=== PATIENT | female | born 1950 | race Caucasian/White ===

== ENCOUNTER 2016-05-23 17:22 | Emergency (ER) | payer OTHER ==
[2016-05-23] MEDS ORDERED: LIDOCAINE 1% MDV 20ML VIAL As Ordered ONE (18:27)
--- NOTE | 2016-05-23 19:00 | REPUSA ---
CLINICAL HISTORY: Head injury. TECHNIQUE: Multiple axial CT images were obtained through the brain without IV contrast material. COMMENTS: There is normal configuration of sella turcica. There are no intra or extra-axial collections. There is no mass effect or midline shift. There is no evidence of hematoma formation. No hydrocephalus is p resent. The ventricles are symmetrical. No abnormal calcifications are present. There is diffuse age-appropriate cerebellar and cerebral atrophy with proportionally dilated ventricl es and cortical sulci. There are bilateral periventricular and subcortical white matter hypolucencies compatible with mild c hronic microvascular disease. Otherwise, no significant focal abnormalities are seen either in the posterior fossa or supratentoria l compartment. IMPRESSION: 1. Age-appropriate cerebellar and cerebral atrophy. 2. Mild chronic microvascular disease. 3. No evidence of acute intracranial pathology. Thank you for your kind referral of this patient.
--- NOTE | 2016-05-23 19:00 | REPUSA ---
CLINICAL HISTORY: Neck pain. TECHNIQUE: Multiple axial images were obtained through the cervical spine. Images were also reconstru cted in coronal and sagittal planes. The study was performed without IV contrast. COMMENTS: There is no fracture or spondylolisthesis visualized. The paraspinal soft tissues are unremarkable. T here are no lytic or blastic lesions. Straightening of cervical lordosis is seen, suggesting muscular spasm. There is evidence of multileve l disk disease, demonstrated by osteophytosis and endplate sclerosis. At C4-C5, C5-6 and C6-7, therei is a broad-based posterior disc osteophyte complex is present produci ng bilateral foraminal and canal stenosis. IMPRESSION: 1. No fracture or spondylolisthesis. 2. Straightening of cervical lordosis is seen, suggesting muscular spasm. 3. Multilevel spondylosis most severe at C4-C5 through C6-7. Thank you for your kind referral of this patient.
[2016-05-23] MEDS ORDERED: TETANUS/DIPHTHERIA TOX ADSORB ADULT 0.5ML SYR/VIAL (90714) As Ordered ONE (19:18)
[2016-05-23 19:33] LABS: BASO # 0.2 K/mm3 (0.0-0.2); BASO % 1.7 % (0.0-1.0); EOS # 0.3 K/mm3 (0.0-0.50); EOS % 2.6 % (0.0-3.0); LARGE UNSTAINED CELL # 0.2 K/mm3 (0.0-0.4); LARGE UNSTAINED CELL % 1.8 % (0.0-4.0); LYMPH # 2.7 K/mm3 (1.5-4.5); LYMPH % 23.3 % (24.0-44.0); MEAN CORPUSCULAR HEMOGLOBIN 25.2 pg (27.0-33.0); MEAN CORPUSCULAR HGB CONC 33.2 g/dl (32.0-36.5); MEAN CORPUSCULAR VOLUME 76.2 fl (80.0-96.0); MONO # 0.5 K/mm3 (0.0-0.8); MONO % 4.6 % (0.0-5.0); NEUTROPHILS # 7.2 K/mm3 (1.8-7.7); NEUTROPHILS % 65.9 % (36.0-66.0); PLATELET COUNT, AUTOMATED 208 k/mm3 (150-450); RED CELL DISTRIBUTION WIDTH 14.1 % (11.5-14.5); WHITE BLOOD COUNT 10.8 K/mm3 (4.0-10.0)
[2016-05-23] MEDS ORDERED: ACETAMINOPHEN 325 MG TAB As Ordered ONE (19:33)
[2016-05-23 19:59] LABS: ANION GAP 7 MEQ/L (8-16); BLOOD UREA NITROGEN 12 MG/DL (7-18); CALCIUM LEVEL 9.2 MG/DL (8.8-10.2); CARBON DIOXIDE LEVEL 29 MEQ/L (21-32); CHLORIDE LEVEL 106 MEQ/L (98-107); CREATININE FOR GFR 0.93 MG/DL (0.55-1.02); GLOMERULAR FILTRATION RATE > 60.0 (>45); GLUCOSE, FASTING 101 MG/DL (80-110); POTASSIUM SERUM 4.5 MEQ/L (3.5-5.1); SODIUM LEVEL 142 MEQ/L (136-145)
--- NOTE | 2016-05-23 21:27 | EDDOCDS ---
Physician Documentation [facility] Name: Ida Whitman Age: 66 yrs Sex: Female : 1950 Arrival Date: 05/23/2016 Time: 17:22 Bed TR7 Private MD: Rui Perry Disposition: 05/23/16 20:07 Discharged to Home/Self Care. Impression: Laceration without foreign body of scalp, Unspecified injury of head. - Condition is Stable. - Discharge Instructions: Head Injury, Adult, Laceration Care, Adult. - Prescriptions for Tylenol 325 mg Oral tablet - take 2 tablet by ORAL route every 4 hours as needed; 30 tablet. Ibuprofen 600 mg Oral Tablet - take 1 tablet by ORAL route every 6 hours As needed take with food; 30 tablet. - Medication Reconciliation, Local Pharmacy Hours form. - Follow up: Rui Perry; When: 2 - 3 days; Reason: Recheck today's complaints. - Problem is new. - Symptoms have improved. - Notes: You were seen in the ED for head injury and scalp laceration, which was repaired with 8 valerio and 6 sutures. See your doctor or return to the ED in 7 days for wound recheck and possible suture/staple removal. Bloodwork along with EKG of the heart and CT scan of the head and neck showed no other acute findings. Keep the wound clean and dry with a clean dressing twice daily. Return to the ED for any new pain, worse pain, redness around the wound, discharge from the wound, or any other concerns. Historical: - Allergies: no known allergies; - PMHx: Anxiety; Depression; - Family history: Not pertinent. Vital Signs: 05/23 17:40 BP 111 / 63; Pulse 88; Resp 18; Pulse Ox 96% ; Weight 81.65 kg / 180.01 lbs; Height 4 hs1 ft. 11 in. (149.86 cm); Pain 9/10; 17:42 Temp 97.8(O); hs1 19:34 BP 132 / 90 Supine; Pulse 78; cp1 19:34 BP 127 / 81 Sitting; Pulse 80; cp1 19:35 BP 125 / 82 Standing; Pulse 92; cp1 17:40 Body Mass Index 36.36 (81.65 kg, 149.86 cm) hs1 Procedures: 19:52 Laceration repair:. br1 Laceration: 19:52 Wound Repair of 7cm ( 2.8in ) full thickness laceration to forehead. Irregularly br1 shaped.. Distal neuro/vascular/tendon intact. Anesthesia: Local anesthetic administered with 5 mls of 1% lidocaine. Wound prep: Simple cleansing with betadine by provider, Wound irrigation with saline by provider, Wound explored moderately. Skin closed with 8 thin layer [place] using Staple gun. Skin closed with 6 x 5-0 Eth[place] using Simple interrupted sutures. Dressed with 4x4's. Patient tolerated well. MDM: 17:42 CT Head Without Contrast Ordered. EDMS 17:42 CT Spine,Cervical W/o Contrast Ordered. EDMS 18:20 IV Saline Lock ordered. br1 18:20 Label Stamper/Pulse Ox/q 30 min VS ordered. br1 18:20 Orthostatic VS ordered. br1 18:22 CBC with Diff Ordered. EDMS 18:22 BMP Ordered. EDMS 18:22 ECG WITH READING ER PHYS+CARDIAG ordered. EDMS 19:06 Tetanus- Diptheria-Acellular Pertussis 0.5 ml IM once; Routine booster 10-64yrs, >64 br1 with child contact [employer] ordered. 19:07 Misc. Nursing Order ordered. br1 19:27 Acetaminophen Tablet 650 mg PO once ordered. br1 19:28 TROPONIN Ordered. EDMS 19:56 Financial registration complete. zo 19:56 [facility] Payment Agreement was scanned into [employer] and attached to record. zo 20:03 CBC with Diff Reviewed. br1 20:03 BMP Reviewed. br1 20:03 TROPONIN Reviewed. br1 20:03 CT Head Without Contrast Reviewed. br1 20:03 CT Spine,Cervical W/o Contrast Reviewed. br1 20:03 Ambulate Patient to Assess Patient Safety ordered. br1 Administered Medications: 19:20 Drug: Tetanus- Diptheria-Acellular Pertussis 0.5 ml [diphth,pertussis(acel),tetanus 2.5 cf2 Lf unit-8 mcg-5 Lf/0.5mL IM syringe (0.5 mL)] {Senior Hr Business Partner: [employer]. Exp: 05/27/2016. Lot #: [id number]. } Route: IM; Site: left deltoid; 19:56 Follow up: Response: No significant change. cf2 19:31 Drug: Acetaminophen 650 mg [acetaminophen 325 mg tablet (2 tabs)] Route: PO; cf2 19:55 Follow up: Response: No significant change. cf2 Signatures: Dispatcher [employer] EDNu Mejia Brian, MD MD br1 Julia Sinha RN RN hs1 Estela Messina RN RN cf2 The chart was reviewed and I authenticate all verbal orders and agree with the evaluation and treatment provided.Corrections: (The following items were deleted from the chart) 19:28 18:22 TROPONIN+LAB ordered. EDMS EDMS Attachments: 19:56 [facility] Payment Agreement zo MTDD
--- NOTE | 2016-05-23 21:27 | EDDOCDS ---
Nurse's Notes [facility] Name: Ida Whitman Age: 66 yrs Sex: Female : 1950 Arrival Date: 05/23/2016 Time: 17:22 Bed TR7 Private MD: Rui Perry Diagnosis: Laceration without foreign body of scalp;Unspecified injury of head Presentation: 05/23 17:29 Presenting complaint: EMS states: felt dizzy leaving specialty care office ([facility]) hs1 after seeing mental health worker. Pt lost balance and face hit door jam. Adult Sepsis Screening: The patient does not have new or worsening altered mentation. Patient's respiratory rate is less than 22. Systolic blood pressure is greater than 100. Patient has a qSOFA score of 0- Negative Sepsis Screen. Suicide/Homicide risk assessment- the patient denies having any suicidal and/or homicidal ideations and does not present with any other emotional, behavioral or mental health complaints. Status: Patient is not a cabin service agent or dependent. Transition of care: patient was not received from another setting of care. 17:29 Acuity: AMBIKA Level 3 hs1 17:29 Method Of Arrival: Ambulance hs1 Triage Assessment: 17:37 General: Appears in no apparent distress, Behavior is appropriate for age, cooperative. hs1 Pain: Location: forehead Pain currently is 9 out of 10 on a pain scale. Neurological: Level of Consciousness is awake, alert, obeys commands, Reports dizziness, headache. Respiratory: Airway is patent Respiratory effort is even, unlabored, Respiratory pattern is regular. Derm: Skin is pink, warm & dry. normal, Bruising that is bright red, on right knee and left knee. Musculoskeletal: Circulation, motion, and sensation intact Range of motion intact in all extremities. Injury Description: Laceration sustained to forehead is jagged, 7.6 to 20 cm long, bleeding moderately, was sustained 30-60 minutes ago. is bleeding moderately. Historical: - Allergies: no known allergies; - PMHx: Anxiety; Depression; - Family history: Not pertinent. Screenin:52 Screening information is obtained from the patient. Fall risk: At risk due to prior cf2 history of falls. Assistance ADL's: requires no assistance with activities of daily living. Abuse/DV Screen: The patient / caregiver reports he/she is: not in a situation that causes fear, pain or injury. Nutritional screening: No deficits noted. Advance Directives: Further advance directive information is declined. home support is adequate. Assessment: 19:52 Adult Sepsis Screening: The patient does not have new or worsening altered mentation. cf2 Patient's respiratory rate is less than 22. Systolic blood pressure is greater than 100. Patient has a qSOFA score of 0- Negative Sepsis Screen. General: Patient's hair cleansed. Patient tolerated well. Patient medicated for headache.. Pain: Location: face. Neurological: No deficits noted. EENT: No deficits noted. Cardiovascular: No deficits noted. Respiratory: No deficits noted. GI: No deficits noted. : No deficits noted. Derm: laceration. Musculoskeletal: No deficits noted. Injury Description: pt fell Laceration sustained to face. 20:06 Reassessment: Patient denies pain at this time. Patient states feeling better. Patient cf2 states symptoms have improved. 20:20 Reassessment: Patient denies pain at this time. Patient states feeling better. Patient cf2 states symptoms have improved. Patient requests that daughter be called. Patient able to recall phone number. Message was left for daughter to call ER at patient's request. Patient tolerating po fluids and ambulates without difficulty. Vital Signs: 17:40 BP 111 / 63; Pulse 88; Resp 18; Pulse Ox 96% ; Weight 81.65 kg; Height 4 ft. 11 in. hs1 (149.86 cm); Pain 9/10; 17:42 Temp 97.8(O); hs1 19:34 BP 132 / 90 Supine; Pulse 78; cp1 19:34 BP 127 / 81 Sitting; Pulse 80; cp1 19:35 BP 125 / 82 Standing; Pulse 92; cp1 17:40 Body Mass Index 36.36 (81.65 kg, 149.86 cm) hs1 Vitals: 17:40 Log In Time N/A - ambulance arrival. hs1 ED Course: 17:23 Patient visited by Amisha Sterling, Acute Care Physician. lbd 17:23 Patient moved to Waiting lbd 17:24 Rui Perry is Private Physician. lbd 17:24 Patient moved to 13 lbd 17:31 Triage Initiated hs1 18:12 Wallace Eaton MD is Attending Physician. br1 18:15 Patient visited by Julia Sinha RN. hs1 19:00 Assist provider with laceration repair. Wound care to laceration located on face was cf2 cleaned with irrigated with dressed with Patient tolerated well. 19:03 Patient visited by Wallace Eaton MD. br1 19:05 Estela Messina,RN is Primary Nurse. cf2 19:05 Patient visited by Estela Messina,NELSON. cf2 19:10 EKG done. (by ED staff). Reviewed by Wallace Eaton MD. cln 19:11 Patient visited by Laurita Blackwell PCA. cln 19:19 CT Spine,Cervical W/o Contrast Returned. EDMS 19:19 CT Head Without Contrast Returned. EDMS 19:22 Patient visited by Estela Messina,NELSON. cf2 19:23 BMP Sent. cp1 19:23 CBC with Diff Sent. cp1 19:23 Inserted saline lock: 20 gauge in left antecubital area and blood collected. The cp1 patient tolerated the procedure well. 19:42 TROPONIN Sent. cp1 19:52 Patient visited by Estela Messina,NELSON. cf2 19:52 The patient / caregiver is instructed regarding the plan of care and ED course. Patient cf2 has correct armband on for positive identification. Placed in gown. Bed in low position. Call light in reach. Side rails up X 1. Side rails up X2. gambling monitor on. Pulse ox on. NIBP on. Property :Personal belongings accompany Pt. Door closed. Noise minimized. Visitors limited. Lights dimmed. Moved to private room. Cool cloth applied. Ice pack to injury. Verbal reassurance given. Warm blanket given. Pillow given. Head of bed elevated. 19:56 [facility] Payment Agreement was scanned into [employer] and attached to record. zo 20:02 Patient name changed from Ida\S\\S\J Carlos\S\ to Ida\S\ \S\J Carlos. EDMS 20:05 Patient visited by Wallace Eaton MD. br1 20:06 Rui Perry is Referral Physician. br1 20:58 Patient moved to [facility] Administered Medications: 19:20 Drug: Tetanus- Diptheria-Acellular Pertussis 0.5 ml [diphth,pertussis(acel),tetanus 2.5 cf2 Lf unit-8 mcg-5 Lf/0.5mL IM syringe (0.5 mL)] {Business Process Analyst: [employer]. Exp: 05/27/2016. Lot #: [id number]. } Route: IM; Site: left deltoid; 19:56 Follow up: Response: No significant change. cf2 19:31 Drug: Acetaminophen 650 mg [acetaminophen 325 mg tablet (2 tabs)] Route: PO; cf2 19:55 Follow up: Response: No significant change. cf2 Order Results: Lab Order: CBC with Diff; SPEC'M 05/23/16 19:15 Test: EOS #; Value: 0.3; Range: 0.0-0.50; Units: K/mm3; Status: F Test: BASO #; Value: 0.2; Range: 0.0-0.2; Units: K/mm3; Status: F Test: LARGE UNSTAINED CELL #; Value: 0.2; Range: 0.0-0.4; Units: K/mm3; Status: F Test: WHITE BLOOD COUNT; Value: 10.8; Range: 4.0-10.0; Abnormal: Above high normal; Units: K/mm3; Status: F Test: RED BLOOD COUNT; Value: 5.44; Range: 4.00-5.40; Abnormal: Above high normal; Units: M/mm3; Status: F Test: HEMOGLOBIN; Value: 13.7; Range: 12.0-16.0; Units: g/dl; Status: F Test: HEMATOCRIT; Value: 41.4; Range: 36.0-47.0; Units: %; Status: F Test: MEAN CORPUSCULAR VOLUME; Value: 76.2; Range: 80.0-96.0; Abnormal: Below low normal; Units: fl; Status: F Test: MEAN CORPUSCULAR HEMOGLOBIN; Value: 25.2; Range: 27.0-33.0; Abnormal: Below low normal; Units: pg; Status: F Test: MEAN CORPUSCULAR HGB CONC; Value: 33.2; Range: 32.0-36.5; Units: g/dl; Status: F Test: RED CELL DISTRIBUTION WIDTH; Value: 14.1; Range: 11.5-14.5; Units: %; Status: F Test: PLATELET COUNT, AUTOMATED; Value: 208; Range: 150-450; Units: k/mm3; Status: F Test: NEUTROPHILS %; Value: 65.9; Range: 36.0-66.0; Units: %; Status: F Test: LYMPH %; Value: 23.3; Range: 24.0-44.0; Abnormal: Below low normal; Units: %; Status: F Test: MONO %; Value: 4.6; Range: 0.0-5.0; Units: %; Status: F Test: EOS %; Value: 2.6; Range: 0.0-3.0; Units: %; Status: F Test: BASO %; Value: 1.7; Range: 0.0-1.0; Abnormal: Above high normal; Units: %; Status: F Test: LARGE UNSTAINED CELL %; Value: 1.8; Range: 0.0-4.0; Units: %; Status: F Test: NEUTROPHILS #; Value: 7.2; Range: 1.8-7.7; Units: K/mm3; Status: F Test: LYMPH #; Value: 2.7; Range: 1.5-4.5; Units: K/mm3; Status: F Test: MONO #; Value: 0.5; Range: 0.0-0.8; Units: K/mm3; Status: F Lab Order: [facility]; SPEC'M 05/23/16 19:15 Test: GLUCOSE, FASTING; Value: 101; Range: 80-110; Units: MG/DL; Status: F Test: BLOOD UREA NITROGEN; Value: 12; Range: 7-18; Units: MG/DL; Status: F Test: CREATININE FOR GFR; Value: 0.93; Range: 0.55-1.02; Units: MG/DL; Status: F Test: GLOMERULAR FILTRATION RATE; Value: > 60.0; Range: >45; Status: F Test: SODIUM LEVEL; Value: 142; Range: 136-145; Units: MEQ/L; Status: F Test: POTASSIUM SERUM; Value: 4.5; Range: 3.5-5.1; Units: MEQ/L; Status: F Test: CHLORIDE LEVEL; Value: 106; Range: 98-107; Units: MEQ/L; Status: F Test: CARBON DIOXIDE LEVEL; Value: 29; Range: 21-32; Units: MEQ/L; Status: F Test: ANION GAP; Value: 7; Range: 8-16; Abnormal: Below low normal; Units: MEQ/L; Status: F Test: CALCIUM LEVEL; Value: 9.2; Range: 8.8-10.2; Units: MG/DL; Status: F Test Note: ; Units are mL/min/1.73 m2 Chronic Kidney Disease Staging per NKF: Stage I & II GFR >=60 Normal to Mildly Decreased Stage III GFR 30-59 Moderately Decreased Stage IV GFR 15-29 Severely Decreased Stage V GFR <15 Very Little GFR Left ESRD GFR <15 on MAINTENANCE CONTROLLER Lab Order: TROPONIN; SPEC'M 05/23/16 19:15 Test: TROPONIN I; Value: < 0.02; Range: < 0.10; Units: NG/ML; Status: F Test Note: ; Troponin I Reference Interval for [employer] LOCI: 99th Percentile= 0.00-0.045 ng/ml Risk Stratification: <= 0.10 ng/ml Decreased Risk for Adverse Clinical Events. 0.10-1.50 ng/ml Increased Risk for Adverse Clinical Events. Evaluation of additional criterion and/or repeat testing in 2-6 hours is suggested to rule out myocardial damage. >= 1.50 ng/ml Indicative of Myocardial Injury. Radiology Order: CT Head Without Contrast Test: CT Head Without Contrast REASON FOR EXAMINATION: head injury; ; CLINICAL HISTORY: Head injury.; TECHNIQUE: Multiple axial CT images were obtained through the brain without IV contrast material.; COMMENTS:; There is normal configuration of sella turcica. There are no intra or extra-axial collections. There; is no mass effect or midline shift. There is no evidence of hematoma formation. No hydrocephalus is p; resent. The ventricles are symmetrical. No abnormal calcifications are present.; There is diffuse age-appropriate cerebellar and cerebral atrophy with proportionally dilated ventricl; es and cortical sulci.; There are bilateral periventricular and subcortical white matter hypolucencies compatible with mild c; hronic microvascular disease.; Otherwise, no significant focal abnormalities are seen either in the posterior fossa or supratentoria; l compartment.; IMPRESSION:; 1. Age-appropriate cerebellar and cerebral atrophy.; 2. Mild chronic microvascular disease.; 3. No evidence of acute intracranial pathology.; Thank you for your kind referral of this patient.; ; ; Radiology Order: CT Spine,Cervical W/o Contrast Test: CT Spine,Cervical W/o Contrast REASON FOR EXAMINATION: neck pain; ; CLINICAL HISTORY: Neck pain.; TECHNIQUE: Multiple axial images were obtained through the cervical spine. Images were also reconstru; cted in coronal and sagittal planes. The study was performed without IV contrast.; COMMENTS:; There is no fracture or spondylolisthesis visualized. The paraspinal soft tissues are unremarkable. T; here are no lytic or blastic lesions.; Straightening of cervical lordosis is seen, suggesting muscular spasm. There is evidence of multileve; l disk disease, demonstrated by osteophytosis and endplate sclerosis.; At C4-C5, C5-6 and C6-7, therei is a broad-based posterior disc osteophyte complex is present produci; ng bilateral foraminal and canal stenosis.; IMPRESSION:; 1. No fracture or spondylolisthesis.; 2. Straightening of cervical lordosis is seen, suggesting muscular spasm.; 3. Multilevel spondylosis most severe at C4-C5 through C6-7.; Thank you for your kind referral of this patient.; ; Outcome: 20:07 Discharge ordered by Provider. br1 21:25 Discharge Assessment: Patient awake, alert and oriented x 3. No cognitive and/or cf2 functional deficits noted. Patient verbalized understanding of disposition instructions. Patient awake and alert. Oriented to person, place and time. patient administered narcotics - no. The following High Risk Discharge criteria are identified: None. Discharged to home. Condition: good Condition: stable Condition: improved. CT Study completed. 21:25 Patient left the ED. cf2 Signatures: Dispatcher [employer] EDMS Amisha Sterling, Acute Care Physician Unit lbd Prabhakar Harmon RN RN cz Olin, Zoeann zo Roggie, Brian, MD MD br1 Cora Bess,SOLAR POWER INSTALLER SOLAR POWER INSTALLER cp1 Julia Sinha RN RN hs1 Laurita Blackwell, DOG RACES MANAGER DOG RACES MANAGER cln Familetti-Oscar,Estela,RN RN cf2 Corrections: (The following items were deleted from the chart) 19:28 19:23 TROPONIN+LAB sent. cp1 EDMS MTDD
--- NOTE | 2016-05-25 07:14 | ECGEPIP ---
Stationary ECG Study [facility] - ED Test Date: 2016-05-23 Pat Name: NASH ORTEGA Department: Room: - Gender: F Research Engineer: nadia : 1950 Requested By: LAURYN Martins Order Number: [id number] Reading MD: Amalia Rodriguez Measurements Intervals [place] Rate: 72 P: 67 MN: 168 QRS: 19 QRSD: 74 T: 75 QT: 386 QTc: 425 Interpretive Statements SINUS RHYTHM INDETERMINATE AXIS POSSIBLE RIGHT VENTRICULAR CONDUCTION DELAY NSTTW ABNORMALITY SUBTLE INFERIOR CHANGES REQUIRE CLINICAL CORRELATION NO PRIOR FOR COMPARISON Electronically Signed On 05-25-2016 7:14:37 EST by Amalia Rodriugez
--- NOTE | 2016-05-25 22:26 | EDDOCDS ---
Nurse's Notes [facility] Name: Ida Ortega Age: 66 yrs Sex: Female : 1950 Arrival Date: 05/23/2016 Time: 17:22 Bed TR7 Private MD: Rui Perry Diagnosis: Laceration without foreign body of scalp;Unspecified injury of head Presentation: 05/23 17:29 Presenting complaint: EMS states: felt dizzy leaving specialty care office ([facility]) hs1 after seeing mental health worker. Pt lost balance and face hit door jam. Adult Sepsis Screening: The patient does not have new or worsening altered mentation. Patient's respiratory rate is less than 22. Systolic blood pressure is greater than 100. Patient has a qSOFA score of 0- Negative Sepsis Screen. Suicide/Homicide risk assessment- the patient denies having any suicidal and/or homicidal ideations and does not present with any other emotional, behavioral or mental health complaints. Status: Patient is not a community service technician or dependent. Transition of care: patient was not received from another setting of care. 17:29 Acuity: AMBIKA Level 3 hs1 17:29 Method Of Arrival: Ambulance hs1 Triage Assessment: 17:37 General: Appears in no apparent distress, Behavior is appropriate for age, cooperative. hs1 Pain: Location: forehead Pain currently is 9 out of 10 on a pain scale. Neurological: Level of Consciousness is awake, alert, obeys commands, Reports dizziness, headache. Respiratory: Airway is patent Respiratory effort is even, unlabored, Respiratory pattern is regular. Derm: Skin is pink, warm & dry. normal, Bruising that is bright red, on right knee and left knee. Musculoskeletal: Circulation, motion, and sensation intact Range of motion intact in all extremities. Injury Description: Laceration sustained to forehead is jagged, 7.6 to 20 cm long, bleeding moderately, was sustained 30-60 minutes ago. is bleeding moderately. Historical: - Allergies: no known allergies; - PMHx: Anxiety; Depression; - Family history: Not pertinent. Screenin:52 Screening information is obtained from the patient. Fall risk: At risk due to prior cf2 history of falls. Assistance ADL's: requires no assistance with activities of daily living. Abuse/DV Screen: The patient / caregiver reports he/she is: not in a situation that causes fear, pain or injury. Nutritional screening: No deficits noted. Advance Directives: Further advance directive information is declined. home support is adequate. Assessment: 19:52 Adult Sepsis Screening: The patient does not have new or worsening altered mentation. cf2 Patient's respiratory rate is less than 22. Systolic blood pressure is greater than 100. Patient has a qSOFA score of 0- Negative Sepsis Screen. General: Patient's hair cleansed. Patient tolerated well. Patient medicated for headache.. Pain: Location: face. Neurological: No deficits noted. EENT: No deficits noted. Cardiovascular: No deficits noted. Respiratory: No deficits noted. GI: No deficits noted. : No deficits noted. Derm: laceration. Musculoskeletal: No deficits noted. Injury Description: pt fell Laceration sustained to face. 20:06 Reassessment: Patient denies pain at this time. Patient states feeling better. Patient cf2 states symptoms have improved. 20:20 Reassessment: Patient denies pain at this time. Patient states feeling better. Patient cf2 states symptoms have improved. Patient requests that daughter be called. Patient able to recall phone number. Message was left for daughter to call ER at patient's request. Patient tolerating po fluids and ambulates without difficulty. Vital Signs: 17:40 BP 111 / 63; Pulse 88; Resp 18; Pulse Ox 96% ; Weight 81.65 kg; Height 4 ft. 11 in. hs1 (149.86 cm); Pain 9/10; 17:42 Temp 97.8(O); hs1 19:34 BP 132 / 90 Supine; Pulse 78; cp1 19:34 BP 127 / 81 Sitting; Pulse 80; cp1 19:35 BP 125 / 82 Standing; Pulse 92; cp1 17:40 Body Mass Index 36.36 (81.65 kg, 149.86 cm) hs1 Vitals: 17:40 Log In Time N/A - ambulance arrival. hs1 ED Course: 17:23 Patient visited by Amisha Sterling, Surgical Processor. lbd 17:23 Patient moved to Waiting lbd 17:24 Rui Perry is Private Physician. lbd 17:24 Patient moved to 13 lbd 17:31 Triage Initiated hs1 18:12 Lauryn Eaton MD is Attending Physician. br1 18:15 Patient visited by Julia Sinha RN. hs1 19:00 Assist provider with laceration repair. Wound care to laceration located on face was cf2 cleaned with irrigated with dressed with Patient tolerated well. 19:03 Patient visited by Lauryn Eaton MD. br1 19:05 Estela Messina,RN is Primary Nurse. cf2 19:05 Patient visited by Estela Messina,NELSON. cf2 19:10 EKG done. (by ED staff). Reviewed by Lauryn Eaton MD. cln 19:11 Patient visited by Laruita Blackwell PCA. cln 19:19 CT Spine,Cervical W/o Contrast Returned. EDMS 19:19 CT Head Without Contrast Returned. EDMS 19:22 Patient visited by Estela Messina,NELSON. cf2 19:23 BMP Sent. cp1 19:23 CBC with Diff Sent. cp1 19:23 Inserted saline lock: 20 gauge in left antecubital area and blood collected. The cp1 patient tolerated the procedure well. 19:42 TROPONIN Sent. cp1 19:52 Patient visited by Estela Messina,NELSON. cf2 19:52 The patient / caregiver is instructed regarding the plan of care and ED course. Patient cf2 has correct armband on for positive identification. Placed in gown. Bed in low position. Call light in reach. Side rails up X 1. Side rails up X2. environmental monitoring technician on. Pulse ox on. NIBP on. Property :Personal belongings accompany Pt. Door closed. Noise minimized. Visitors limited. Lights dimmed. Moved to private room. Cool cloth applied. Ice pack to injury. Verbal reassurance given. Warm blanket given. Pillow given. Head of bed elevated. 19:56 [facility] Payment Agreement was scanned into [employer] and attached to record. zo 20:02 Patient name changed from Ida\S\\S\J Carlos\S\ to Ida\S\ \S\J Carlos. EDMS 20:05 Patient visited by Lauryn Eaton MD. br1 20:06 Rui Perry is Referral Physician. br1 20:58 Patient moved to [facility] 05/24 10:41 T-Sheet-- Draft Copy was scanned into [employer] and attached to record. gb 10:41 ECG/EKG was scanned into [employer] and attached to record. gb 10:42 Radiology Report was scanned into [employer] and attached to record. gb 05/25 07:41 EKG-ADULT Returned. EDMS Administered Medications: 05/23 19:20 Drug: Tetanus- Diptheria-Acellular Pertussis 0.5 ml [diphth,pertussis(acel),tetanus 2.5 cf2 Lf unit-8 mcg-5 Lf/0.5mL IM syringe (0.5 mL)] {Surveyor Chain Helper: [employer]. Exp: 05/27/2016. Lot #: [id number]. } Route: IM; Site: left deltoid; 19:56 Follow up: Response: No significant change. cf2 19:31 Drug: Acetaminophen 650 mg [acetaminophen 325 mg tablet (2 tabs)] Route: PO; cf2 19:55 Follow up: Response: No significant change. cf2 Order Results: Lab Order: CBC with Diff; SPEC'M 05/23/16 19:15 Test: EOS #; Value: 0.3; Range: 0.0-0.50; Units: K/mm3; Status: F Test: BASO #; Value: 0.2; Range: 0.0-0.2; Units: K/mm3; Status: F Test: LARGE UNSTAINED CELL #; Value: 0.2; Range: 0.0-0.4; Units: K/mm3; Status: F Test: WHITE BLOOD COUNT; Value: 10.8; Range: 4.0-10.0; Abnormal: Above high normal; Units: K/mm3; Status: F Test: RED BLOOD COUNT; Value: 5.44; Range: 4.00-5.40; Abnormal: Above high normal; Units: M/mm3; Status: F Test: HEMOGLOBIN; Value: 13.7; Range: 12.0-16.0; Units: g/dl; Status: F Test: HEMATOCRIT; Value: 41.4; Range: 36.0-47.0; Units: %; Status: F Test: MEAN CORPUSCULAR VOLUME; Value: 76.2; Range: 80.0-96.0; Abnormal: Below low normal; Units: fl; Status: F Test: MEAN CORPUSCULAR HEMOGLOBIN; Value: 25.2; Range: 27.0-33.0; Abnormal: Below low normal; Units: pg; Status: F Test: MEAN CORPUSCULAR HGB CONC; Value: 33.2; Range: 32.0-36.5; Units: g/dl; Status: F Test: RED CELL DISTRIBUTION WIDTH; Value: 14.1; Range: 11.5-14.5; Units: %; Status: F Test: PLATELET COUNT, AUTOMATED; Value: 208; Range: 150-450; Units: k/mm3; Status: F Test: NEUTROPHILS %; Value: 65.9; Range: 36.0-66.0; Units: %; Status: F Test: LYMPH %; Value: 23.3; Range: 24.0-44.0; Abnormal: Below low normal; Units: %; Status: F Test: MONO %; Value: 4.6; Range: 0.0-5.0; Units: %; Status: F Test: EOS %; Value: 2.6; Range: 0.0-3.0; Units: %; Status: F Test: BASO %; Value: 1.7; Range: 0.0-1.0; Abnormal: Above high normal; Units: %; Status: F Test: LARGE UNSTAINED CELL %; Value: 1.8; Range: 0.0-4.0; Units: %; Status: F Test: NEUTROPHILS #; Value: 7.2; Range: 1.8-7.7; Units: K/mm3; Status: F Test: LYMPH #; Value: 2.7; Range: 1.5-4.5; Units: K/mm3; Status: F Test: MONO #; Value: 0.5; Range: 0.0-0.8; Units: K/mm3; Status: F Lab Order: [facility]; SPEC'M 05/23/16 19:15 Test: GLUCOSE, FASTING; Value: 101; Range: 80-110; Units: MG/DL; Status: F Test: BLOOD UREA NITROGEN; Value: 12; Range: 7-18; Units: MG/DL; Status: F Test: CREATININE FOR GFR; Value: 0.93; Range: 0.55-1.02; Units: MG/DL; Status: F Test: GLOMERULAR FILTRATION RATE; Value: > 60.0; Range: >45; Status: F Test: SODIUM LEVEL; Value: 142; Range: 136-145; Units: MEQ/L; Status: F Test: POTASSIUM SERUM; Value: 4.5; Range: 3.5-5.1; Units: MEQ/L; Status: F Test: CHLORIDE LEVEL; Value: 106; Range: 98-107; Units: MEQ/L; Status: F Test: CARBON DIOXIDE LEVEL; Value: 29; Range: 21-32; Units: MEQ/L; Status: F Test: ANION GAP; Value: 7; Range: 8-16; Abnormal: Below low normal; Units: MEQ/L; Status: F Test: CALCIUM LEVEL; Value: 9.2; Range: 8.8-10.2; Units: MG/DL; Status: F Test Note: ; Units are mL/min/1.73 m2 Chronic Kidney Disease Staging per NKF: Stage I & II GFR >=60 Normal to Mildly Decreased Stage III GFR 30-59 Moderately Decreased Stage IV GFR 15-29 Severely Decreased Stage V GFR <15 Very Little GFR Left ESRD GFR <15 on POWER DRIVEN BRUSH MAKER Lab Order: TROPONIN; SPEC'M 05/23/16 19:15 Test: TROPONIN I; Value: < 0.02; Range: < 0.10; Units: NG/ML; Status: F Test Note: ; Troponin I Reference Interval for [employer] LOCI: 99th Percentile= 0.00-0.045 ng/ml Risk Stratification: <= 0.10 ng/ml Decreased Risk for Adverse Clinical Events. 0.10-1.50 ng/ml Increased Risk for Adverse Clinical Events. Evaluation of additional criterion and/or repeat testing in 2-6 hours is suggested to rule out myocardial damage. >= 1.50 ng/ml Indicative of Myocardial Injury. Radiology Order: CT Head Without Contrast Test: CT Head Without Contrast REASON FOR EXAMINATION: head injury; ; CLINICAL HISTORY: Head injury.; TECHNIQUE: Multiple axial CT images were obtained through the brain without IV contrast material.; COMMENTS:; There is normal configuration of sella turcica. There are no intra or extra-axial collections. There; is no mass effect or midline shift. There is no evidence of hematoma formation. No hydrocephalus is p; resent. The ventricles are symmetrical. No abnormal calcifications are present.; There is diffuse age-appropriate cerebellar and cerebral atrophy with proportionally dilated ventricl; es and cortical sulci.; There are bilateral periventricular and subcortical white matter hypolucencies compatible with mild c; hronic microvascular disease.; Otherwise, no significant focal abnormalities are seen either in the posterior fossa or supratentoria; l compartment.; IMPRESSION:; 1. Age-appropriate cerebellar and cerebral atrophy.; 2. Mild chronic microvascular disease.; 3. No evidence of acute intracranial pathology.; Thank you for your kind referral of this patient.; ; ; Radiology Order: CT Spine,Cervical W/o Contrast Test: CT Spine,Cervical W/o Contrast REASON FOR EXAMINATION: neck pain; ; CLINICAL HISTORY: Neck pain.; TECHNIQUE: Multiple axial images were obtained through the cervical spine. Images were also reconstru; cted in coronal and sagittal planes. The study was performed without IV contrast.; COMMENTS:; There is no fracture or spondylolisthesis visualized. The paraspinal soft tissues are unremarkable. T; here are no lytic or blastic lesions.; Straightening of cervical lordosis is seen, suggesting muscular spasm. There is evidence of multileve; l disk disease, demonstrated by osteophytosis and endplate sclerosis.; At C4-C5, C5-6 and C6-7, therei is a broad-based posterior disc osteophyte complex is present produci; ng bilateral foraminal and canal stenosis.; IMPRESSION:; 1. No fracture or spondylolisthesis.; 2. Straightening of cervical lordosis is seen, suggesting muscular spasm.; 3. Multilevel spondylosis most severe at C4-C5 through C6-7.; Thank you for your kind referral of this patient.; ; Radiology Order: EKG-ADULT Test: EKG-ADULT REASON FOR EXAMINATION: dysrhythmia; Stationary ECG Study; [facility] - ED; ; Test Date: 2016-05-23; Pat Name: IDA ORTEGA Department:; Room: -; Gender: F Mental Hygienist: nadia; : 1950 Requested By: LAURYN Martins; Order Number: [id number] [place] MD: Amalia Rodriguez; Measurements; Intervals [place]; Rate: 72 P: 67; RI: 168 QRS: 19; QRSD: 74 T: 75; QT: 386; QTc: 425; Interpretive Statements; SINUS RHYTHM; INDETERMINATE AXIS; POSSIBLE RIGHT VENTRICULAR CONDUCTION DELAY; NSTTW ABNORMALITY; SUBTLE INFERIOR CHANGES REQUIRE CLINICAL CORRELATION; NO PRIOR FOR COMPARISON; Electronically Signed On 05-25-2016 7:14:37 EST by Amalia Rodriguez; Outcome: 20:07 Discharge ordered by Provider. br1 21:25 Discharge Assessment: Patient awake, alert and oriented x 3. No cognitive and/or cf2 functional deficits noted. Patient verbalized understanding of disposition instructions. Patient awake and alert. Oriented to person, place and time. patient administered narcotics - no. The following High Risk Discharge criteria are identified: None. Discharged to home. Condition: good Condition: stable Condition: improved. CT Study completed. 21:25 Patient left the ED. cf2 Signatures: Dispatcher [employer] EDMS Amisha Sterling, Surgical Processor Unit lbd Prabhakar Harmon RN RN cz Danay Alvarez, Reg Reg gb Nu Astudillo Brian, MD MD br1 Cora Bess,TESTER REGULATOR TESTER REGULATOR cp1 Julia Sinha RN RN hs1 Laurita Blackwell, FINANCE OFFICER FINANCE OFFICER cln Estela Messina,NELSON RN cf2 Corrections: (The following items were deleted from the chart) 19:28 19:23 TROPONIN+LAB sent. 1 EDMS Chart Complete MTDD
--- NOTE | 2016-05-25 22:26 | EDDOCDS ---
Physician Documentation [facility] Name: Ida Whitman Age: 66 yrs Sex: Female : 1950 Arrival Date: 05/23/2016 Time: 17:22 Bed TR7 Private MD: Rui Perry Disposition: 05/23/16 20:07 Discharged to Home/Self Care. Impression: Laceration without foreign body of scalp, Unspecified injury of head. - Condition is Stable. - Discharge Instructions: Head Injury, Adult, Laceration Care, Adult. - Prescriptions for Tylenol 325 mg Oral tablet - take 2 tablet by ORAL route every 4 hours as needed; 30 tablet. Ibuprofen 600 mg Oral Tablet - take 1 tablet by ORAL route every 6 hours As needed take with food; 30 tablet. - Medication Reconciliation, Local Pharmacy Hours form. - Follow up: Rui Perry; When: 2 - 3 days; Reason: Recheck today's complaints. - Problem is new. - Symptoms have improved. - Notes: You were seen in the ED for head injury and scalp laceration, which was repaired with 8 valerio and 6 sutures. See your doctor or return to the ED in 7 days for wound recheck and possible suture/staple removal. Bloodwork along with EKG of the heart and CT scan of the head and neck showed no other acute findings. Keep the wound clean and dry with a clean dressing twice daily. Return to the ED for any new pain, worse pain, redness around the wound, discharge from the wound, or any other concerns. Historical: - Allergies: no known allergies; - PMHx: Anxiety; Depression; - Family history: Not pertinent. Vital Signs: 05/23 17:40 BP 111 / 63; Pulse 88; Resp 18; Pulse Ox 96% ; Weight 81.65 kg / 180.01 lbs; Height 4 hs1 ft. 11 in. (149.86 cm); Pain 9/10; 17:42 Temp 97.8(O); hs1 19:34 BP 132 / 90 Supine; Pulse 78; cp1 19:34 BP 127 / 81 Sitting; Pulse 80; cp1 19:35 BP 125 / 82 Standing; Pulse 92; cp1 17:40 Body Mass Index 36.36 (81.65 kg, 149.86 cm) hs1 Procedures: 19:52 Laceration repair:. br1 Laceration: 19:52 Wound Repair of 7cm ( 2.8in ) full thickness laceration to forehead. Irregularly br1 shaped.. Distal neuro/vascular/tendon intact. Anesthesia: Local anesthetic administered with 5 mls of 1% lidocaine. Wound prep: Simple cleansing with betadine by provider, Wound irrigation with saline by provider, Wound explored moderately. Skin closed with 8 thin layer [place] using Staple gun. Skin closed with 6 x 5-0 Ethilon using Simple interrupted sutures. Dressed with 4x4's. Patient tolerated well. MDM: 17:42 CT Head Without Contrast Ordered. EDMS 17:42 CT Spine,Cervical W/o Contrast Ordered. EDMS 18:20 IV Saline Lock ordered. br1 18:20 Records Analysis Manager/Pulse Ox/q 30 min VS ordered. br1 18:20 Orthostatic VS ordered. br1 18:22 CBC with Diff Ordered. EDMS 18:22 BMP Ordered. EDMS 18:22 ECG WITH READING ER PHYS+CARDIAG ordered. EDMS 19:06 Tetanus- Diptheria-Acellular Pertussis 0.5 ml IM once; Routine booster 10-64yrs, >64 br1 with child contact [employer] Omnicell ordered. 19:07 Mis. Nursing Order ordered. br1 19:27 Acetaminophen Tablet 650 mg PO once ordered. br1 19:28 TROPONIN Ordered. EDMS 19:56 Financial registration complete. zo 19:56 [facility] Payment Agreement was scanned into [employer] and attached to record. zo 20:03 CBC with Diff Reviewed. br1 20:03 BMP Reviewed. br1 20:03 TROPONIN Reviewed. br1 20:03 CT Head Without Contrast Reviewed. br1 20:03 CT Spine,Cervical W/o Contrast Reviewed. br1 20:03 Ambulate Patient to Assess Patient Safety ordered. br1 05/24 10:41 T-Sheet-- Draft Copy was scanned into [employer] and attached to record. gb 10:41 ECG/EKG was scanned into [employer] and attached to record. gb 10:42 Radiology Report was scanned into [employer] and attached to record. gb Administered Medications: 05/23 19:20 Drug: Tetanus- Diptheria-Acellular Pertussis 0.5 ml [diphth,pertussis(acel),tetanus 2.5 cf2 Lf unit-8 mcg-5 Lf/0.5mL IM syringe (0.5 mL)] {Senior Front End Web Developer: [employer]. Exp: 05/27/2016. Lot #: [id number]. } Route: IM; Site: left deltoid; 19:56 Follow up: Response: No significant change. cf2 19:31 Drug: Acetaminophen 650 mg [acetaminophen 325 mg tablet (2 tabs)] Route: PO; cf2 19:55 Follow up: Response: No significant change. cf2 Signatures: Dispatcher [employer] EDMS Danay Alvarez, Reg Reg gb [place], Wallace Eagle MD MD br1 Julia Sinha RN RN hs1 Estela Messina RN RN cf2 The chart was reviewed and I authenticate all verbal orders and agree with the evaluation and treatment provided.Corrections: (The following items were deleted from the chart) 19:28 18:22 TROPONIN+LAB ordered. EDMS EDMS Attachments: 19:56 [facility] [place] Agreement zo 05/24 10:41 T-Sheet-- Draft Copy gb 10:41 ECG/EKG gb Chart Complete MTDD
--- NOTE | 2016-05-25 22:26 | EDDOCDS ---
Physician Documentation [facility] Name: Ida Whitman Age: 66 yrs Sex: Female : 1950 Arrival Date: 05/23/2016 Time: 17:22 Bed TR7 Private MD: Rui Perry Disposition: 05/23/16 20:07 Discharged to Home/Self Care. Impression: Laceration without foreign body of scalp, Unspecified injury of head. - Condition is Stable. - Discharge Instructions: Head Injury, Adult, Laceration Care, Adult. - Prescriptions for Tylenol 325 mg Oral tablet - take 2 tablet by ORAL route every 4 hours as needed; 30 tablet. Ibuprofen 600 mg Oral Tablet - take 1 tablet by ORAL route every 6 hours As needed take with food; 30 tablet. - Medication Reconciliation, Local Pharmacy Hours form. - Follow up: Rui Perry; When: 2 - 3 days; Reason: Recheck today's complaints. - Problem is new. - Symptoms have improved. - Notes: You were seen in the ED for head injury and scalp laceration, which was repaired with 8 valerio and 6 sutures. See your doctor or return to the ED in 7 days for wound recheck and possible suture/staple removal. Bloodwork along with EKG of the heart and CT scan of the head and neck showed no other acute findings. Keep the wound clean and dry with a clean dressing twice daily. Return to the ED for any new pain, worse pain, redness around the wound, discharge from the wound, or any other concerns. Historical: - Allergies: no known allergies; - PMHx: Anxiety; Depression; - Family history: Not pertinent. Vital Signs: 05/23 17:40 BP 111 / 63; Pulse 88; Resp 18; Pulse Ox 96% ; Weight 81.65 kg / 180.01 lbs; Height 4 hs1 ft. 11 in. (149.86 cm); Pain 9/10; 17:42 Temp 97.8(O); hs1 19:34 BP 132 / 90 Supine; Pulse 78; cp1 19:34 BP 127 / 81 Sitting; Pulse 80; cp1 19:35 BP 125 / 82 Standing; Pulse 92; cp1 17:40 Body Mass Index 36.36 (81.65 kg, 149.86 cm) hs1 Procedures: 19:52 Laceration repair:. br1 Laceration: 19:52 Wound Repair of 7cm ( 2.8in ) full thickness laceration to forehead. Irregularly br1 shaped.. Distal neuro/vascular/tendon intact. Anesthesia: Local anesthetic administered with 5 mls of 1% lidocaine. Wound prep: Simple cleansing with betadine by provider, Wound irrigation with saline by provider, Wound explored moderately. Skin closed with 8 thin layer [place] using Staple gun. Skin closed with 6 x 5-0 Ethilon using Simple interrupted sutures. Dressed with 4x4's. Patient tolerated well. MDM: 17:42 CT Head Without Contrast Ordered. EDMS 17:42 CT Spine,Cervical W/o Contrast Ordered. EDMS 18:20 IV Saline Lock ordered. br1 18:20 Manager Cardiac/Pulse Ox/q 30 min VS ordered. br1 18:20 Orthostatic VS ordered. br1 18:22 CBC with Diff Ordered. EDMS 18:22 BMP Ordered. EDMS 18:22 ECG WITH READING ER PHYS+CARDIAG ordered. EDMS 19:06 Tetanus- Diptheria-Acellular Pertussis 0.5 ml IM once; Routine booster 10-64yrs, >64 br1 with child contact [place] Omnicell ordered. 19:07 Mis. Nursing Order ordered. br1 19:27 Acetaminophen Tablet 650 mg PO once ordered. br1 19:28 TROPONIN Ordered. EDMS 19:56 Financial registration complete. zo 19:56 [facility] Payment Agreement was scanned into [email or web address] and attached to record. zo 20:03 CBC with Diff Reviewed. br1 20:03 BMP Reviewed. br1 20:03 TROPONIN Reviewed. br1 20:03 CT Head Without Contrast Reviewed. br1 20:03 CT Spine,Cervical W/o Contrast Reviewed. br1 20:03 Ambulate Patient to Assess Patient Safety ordered. br1 05/24 10:41 T-Sheet-- Draft Copy was scanned into [email or web address] and attached to record. gb 10:41 ECG/EKG was scanned into [email or web address] and attached to record. gb 10:42 Radiology Report was scanned into [email or web address] and attached to record. gb Administered Medications: 05/23 19:20 Drug: Tetanus- Diptheria-Acellular Pertussis 0.5 ml [diphth,pertussis(acel),tetanus 2.5 cf2 Lf unit-8 mcg-5 Lf/0.5mL IM syringe (0.5 mL)] {Kick Plate Installer: [employer]. Exp: 05/27/2016. Lot #: [id number]. } Route: IM; Site: left deltoid; 19:56 Follow up: Response: No significant change. cf2 19:31 Drug: Acetaminophen 650 mg [acetaminophen 325 mg tablet (2 tabs)] Route: PO; cf2 19:55 Follow up: Response: No significant change. cf2 Signatures: Dispatcher [employer] EDMS Danay Alvarez, Reg Reg gb [place], Wallace Eagle MD MD br1 Julia Sinha RN RN hs1 Estela Messina RN RN cf2 The chart was reviewed and I authenticate all verbal orders and agree with the evaluation and treatment provided.Corrections: (The following items were deleted from the chart) 19:28 18:22 TROPONIN+LAB ordered. EDMS EDMS Attachments: 19:56 [facility] [place] Agreement zo 05/24 10:41 T-Sheet-- Draft Copy gb 10:41 ECG/EKG gb Chart Complete MTDD
== END 2016-05-23 21:25 | disposition home or self-care (01) ==
LOC: M ED 17:22
DX: S01.01XA Laceration without foreign body of scalp, initial encounter (principal); W18.00XA Striking against unspecified object with subsequent fall, initial encounter; Y92.039 Unspecified place in apartment as the place of occurrence of the external cause; Y93.9 Activity, unspecified; Y99.9 Unspecified external cause status; F41.9 Anxiety disorder, unspecified; F32.9 Major depressive disorder, single episode, unspecified

== ENCOUNTER → 2016-09-20 | Outpatient (CLI) | payer OTHER ==
[~2016-09-20] VITALS: Ht 149.9 cm; Wt 80.3 kg
[~2016-09-20] MED LIST: ATOR40TA PO; FLUO10CA8 PO; LIDOCAINE 2% INJ 100 MG/5 ML SDV (FOR ANES.) As Ordered ONE; MELA5CHW PO; NS 1,000 ML IV ONE; PROPOFOL 500 MG/50 ML VIAL As Ordered ONE; QUET1TAB8 PO
--- NOTE | 2016-09-20 10:48 | ROOR ---
Patient Name: Ida Whitman Procedure Date: 09/20/2016 10:27 AM Date of : 1950 Age: 66 Room: [facility] Gender: Female Note Status: Finalized Procedure: Colonoscopy Indications: Screening for colorectal malignant neoplasm Providers: Geoff MEHTA MD Referring MD: Kevin WATKINS MD Requesting Provider: Medicines: Monitored Anesthesia Care Complications: No immediate complications. Procedure: Pre-Anesthesia Assessment: - The heart rate, respiratory rate, oxygen saturations, blood pressure, adequacy of pulmonary ventilation, and response to care were monitored throughout the procedure. The Colonoscope was introduced through the anus and advanced to the cecum, identified by appendiceal orifice and ileocecal valve. The colonoscopy was performed without difficulty. The patient tolerated the procedure well. The quality of the bowel preparation was good. Findings: The perianal and digital rectal examinations were normal. Two sessile polyps were found in the hepatic flexure and ascending colon. The polyps were 3 to 5 mm in size. These polyps were removed with a cold snare. Resection and retrieval were complete. A 3 mm polyp was found in the sigmoid colon. The polyp was sessile. The polyp was removed with a cold snare. Resection was complete, but the polyp tissue was not retrieved. Multiple medium-mouthed diverticula were found in the sigmoid colon. There was narrowing of the colon in association with the diverticular opening. Small Internal Hemorrhoids. The exam was otherwise without abnormality on direct and retroflexion views. Impression: - Two 3 to 5 mm polyps at the hepatic flexure and in the ascending colon, removed with a cold snare. Resected and retrieved. - One 3 mm polyp in the sigmoid colon, removed with a cold snare. Complete resection. Polyp tissue not retrieved. - Moderate diverticulosis in the sigmoid colon. - Small Internal Hemorrhoids. - The examination was otherwise normal on direct and retroflexion views. Recommendation: - Repeat colonoscopy in 3 years for surveillance. Geoff Mehta MD Geoff MEHTA MD 09/20/2016 10:47:52 AM This report has been signed electronically. Number of Addenda: 0 Note Initiated On: 09/20/2016 10:27 AM Estimated Blood Loss: Estimated blood loss: none.
[2016-09-20 11:05] VITALS: BP 138/81
== END | disposition home or self-care (01) ==
LOC: M OPP 08:39
PROVIDERS: ATTEND Internal Medicine Gastroenterology
DX: Z12.11 Encounter for screening for malignant neoplasm of colon (principal); D12.2 Benign neoplasm of ascending colon; D12.3 Benign neoplasm of transverse colon; D12.5 Benign neoplasm of sigmoid colon; K57.30 Diverticulosis of large intestine without perforation or abscess without bleeding; K64.8 Other hemorrhoids; E78.5 Hyperlipidemia, unspecified; F41.9 Anxiety disorder, unspecified; F33.9 Major depressive disorder, recurrent, unspecified; J44.9 Chronic obstructive pulmonary disease, unspecified; F17.210 Nicotine dependence, cigarettes, uncomplicated; Z79.899 Other long term (current) drug therapy; G47.00 Insomnia, unspecified

== ENCOUNTER → 2016-11-15 | Outpatient (REF) | payer OTHER ==
[~2016-11-15] MED LIST changes: -ATOR40TA PO; +ATOR40TA75 PO; -LIDOCAINE 2% INJ 100 MG/5 ML SDV (FOR ANES.) As Ordered ONE; -MELA5CHW PO; +MELA5TAB20 PO; -NS 1,000 ML IV ONE; -PROPOFOL 500 MG/50 ML VIAL As Ordered ONE
== END ==
LOC: M LAB REF 15:23
PROVIDERS: ATTEND Family Medicine Addiction Medicine
DX: Z12.4 Encounter for screening for malignant neoplasm of cervix (principal)

== ENCOUNTER → 2018-02-18 | Outpatient (REF) | payer MEDICARE, OTHER, MEDICAID ==
[2018-02-18 22:44] LABS: APPEARANCE, URINE CLOUDY (CLEAR); BACTERIA, URINE AUTO 1+ (NEGATIVE); BILIRUBIN, URINE AUTO NEGATIVE (NEGATIVE); BLOOD, URINE BLOOD 1+ (NEGATIVE); CALCIUM OXALATE CRYSTALS MODERATE; COLOR, URINE YELLOW (YELLOW); GLUCOSE, URINE (UA) AUTO NEGATIVE (NEGATIVE); KETONE, URINE AUTO TRACE mg/dL (NEGATIVE); LEUKOCYTE ESTERASE, URINE AUTO TRACE (NEGATIVE); MUCUS, URINE SMALL (NEGATIVE); NITRITE, URINE AUTO NEGATIVE (NEGATIVE); PROTEIN, URINE AUTO 1+ mg/dL (NEGATIVE); RBC, URINE AUTO 3 /HPF (0-3); SPECIFIC GRAVITY URINE AUTO 1.024 (1.002-1.035); SQUAMOUS EPITHELIAL CELL UR AU 4 /HPF (0-6); WBC, URINE AUTO 7 /HPF (0-3)
== END ==
LOC: M LAB REF 21:40
DX: N39.0 Urinary tract infection, site not specified (principal)
CPT/HCPCS: 81001

== ENCOUNTER → 2018-02-25 | Outpatient (REF) | payer MEDICARE, MEDICAID ==
[2018-02-25 22:04] LABS: APPEARANCE, URINE HAZY (CLEAR); BACTERIA, URINE AUTO 1+ (NEGATIVE); BILIRUBIN, URINE AUTO NEGATIVE (NEGATIVE); BLOOD, URINE BLOOD 1+ (NEGATIVE); COLOR, URINE YELLOW (YELLOW); GLUCOSE, URINE (UA) AUTO NEGATIVE (NEGATIVE); KETONE, URINE AUTO NEGATIVE (NEGATIVE); LEUKOCYTE ESTERASE, URINE AUTO TRACE (NEGATIVE); MUCUS, URINE SMALL (NEGATIVE); NITRITE, URINE AUTO NEGATIVE (NEGATIVE); PROTEIN, URINE AUTO NEGATIVE (NEGATIVE); RBC, URINE AUTO 1 /HPF (0-3); SPECIFIC GRAVITY URINE AUTO 1.008 (1.002-1.035); SQUAMOUS EPITHELIAL CELL UR AU 2 /HPF (0-6); UROBILINOGEN, URINE AUTO 0.2 mg/dL (0.0-2.0); WBC, URINE AUTO 6 /HPF (0-3)
== END ==
LOC: M LAB REF 21:20
DX: N39.0 Urinary tract infection, site not specified (principal)
CPT/HCPCS: 81001

== ENCOUNTER → 2018-04-08 | Outpatient (CLI) | payer MEDICARE, MEDICAID ==
[2018-04-08 16:04] LABS: NT-PRO BNP 52 PG/ML (<125)
== END ==
LOC: M LAB 15:09
DX: R06.00 Dyspnea, unspecified (principal)
CPT/HCPCS: 36415

== ENCOUNTER → 2018-04-15 | Outpatient (REF) | payer MEDICARE, MEDICAID ==
[2018-04-15 13:14] LABS: ALBUMIN 3.6 GM/DL (3.2-5.2); ALBUMIN/GLOBULIN RATIO 1.03 (1.00-1.93); ALKALINE PHOSPHATASE 112 U/L (45-117); ALT/SGPT 29 U/L (12-78); ANION GAP 11 MEQ/L (8-16); AST/SGOT 34 U/L (7-37); BILIRUBIN,TOTAL 0.3 MG/DL (0.2-1.0); BLOOD UREA NITROGEN 7 MG/DL (7-18); CALCIUM LEVEL 8.4 MG/DL (8.8-10.2); CARBON DIOXIDE LEVEL 25 MEQ/L (21-32); CHLORIDE LEVEL 104 MEQ/L (98-107); CHOLESTEROL LEVEL 242 MG/DL (<200); CREATININE FOR GFR 0.84 MG/DL (0.55-1.30); GLOMERULAR FILTRATION RATE > 60.0 (>45); GLUCOSE, FASTING 89 MG/DL (70-100); HDL CHOLESTEROL 46 MG/DL (>40); LDL CHOLESTEROL 157 MG/DL (<100); NON-HDL-C 196 MG/DL; POTASSIUM SERUM 4.2 MEQ/L (3.5-5.1); SODIUM LEVEL 140 MEQ/L (136-145); TOTAL PROTEIN 7.1 GM/DL (6.4-8.2); TRIGLYCERIDES LEVEL 194 MG/DL (<150)
== END ==
LOC: M LAB REF 12:02
DX: E78.49 Other hyperlipidemia (principal)
CPT/HCPCS: 84443

== ENCOUNTER → 2018-11-27 | Outpatient (REF) | payer MEDICARE, MEDICAID ==
[2018-11-27 21:50] LABS: APPEARANCE, URINE HAZY (CLEAR); BACTERIA, URINE AUTO NEGATIVE (NEGATIVE); BILIRUBIN, URINE AUTO NEGATIVE (NEGATIVE); BLOOD, URINE BLOOD NEGATIVE (NEGATIVE); COLOR, URINE YELLOW (YELLOW); GLUCOSE, URINE (UA) AUTO NEGATIVE (NEGATIVE); KETONE, URINE AUTO NEGATIVE (NEGATIVE); LEUKOCYTE ESTERASE, URINE AUTO NEGATIVE (NEGATIVE); MUCUS, URINE SMALL (NEGATIVE); NITRITE, URINE AUTO NEGATIVE (NEGATIVE); PROTEIN, URINE AUTO 1+ mg/dL (NEGATIVE); RBC, URINE AUTO 3 /HPF (0-3); SPECIFIC GRAVITY URINE AUTO 1.019 (1.002-1.035); SQUAMOUS EPITHELIAL CELL UR AU 5 /HPF (0-6); WBC, URINE AUTO 1 /HPF (0-3)
== END ==
LOC: M LAB REF 10:24
PROVIDERS: ATTEND Physician Assistant
DX: N39.0 Urinary tract infection, site not specified (principal)

== ENCOUNTER → 2018-12-17 | Outpatient (REF) | payer MEDICARE, MEDICAID ==
[2018-12-17 21:31] LABS: APPEARANCE, URINE HAZY (CLEAR); BACTERIA, URINE AUTO 1+ (NEGATIVE); BILIRUBIN, URINE AUTO NEGATIVE (NEGATIVE); BLOOD, URINE BLOOD 1+ (NEGATIVE); COLOR, URINE AMBER (YELLOW); GLUCOSE, URINE (UA) AUTO NEGATIVE (NEGATIVE); KETONE, URINE AUTO NEGATIVE (NEGATIVE); LEUKOCYTE ESTERASE, URINE AUTO NEGATIVE (NEGATIVE); MUCUS, URINE SMALL (NEGATIVE); NITRITE, URINE AUTO NEGATIVE (NEGATIVE); PROTEIN, URINE AUTO NEGATIVE (NEGATIVE); RBC, URINE AUTO 2 /HPF (0-3); SPECIFIC GRAVITY URINE AUTO 1.024 (1.002-1.035); SQUAMOUS EPITHELIAL CELL UR AU 5 /HPF (0-6); WBC, URINE AUTO 1 /HPF (0-3)
== END ==
LOC: M LAB REF 10:03
PROVIDERS: ATTEND Physician Assistant Medical
DX: N39.0 Urinary tract infection, site not specified (principal)

== ENCOUNTER → 2018-12-29 | Outpatient (REF) | payer MEDICARE, MEDICAID ==
[2018-12-29 21:51] LABS: APPEARANCE, URINE CLOUDY (CLEAR); BACTERIA, URINE AUTO 1+ (NEGATIVE); BILIRUBIN, URINE AUTO NEGATIVE (NEGATIVE); BLOOD, URINE BLOOD 1+ (NEGATIVE); CALCIUM OXALATE CRYSTALS SMALL; COLOR, URINE YELLOW (YELLOW); GLUCOSE, URINE (UA) AUTO NEGATIVE (NEGATIVE); KETONE, URINE AUTO NEGATIVE (NEGATIVE); LEUKOCYTE ESTERASE, URINE AUTO TRACE (NEGATIVE); MUCUS, URINE SMALL (NEGATIVE); NITRITE, URINE AUTO NEGATIVE (NEGATIVE); PROTEIN, URINE AUTO NEGATIVE (NEGATIVE); RBC, URINE AUTO 5 /HPF (0-3); SPECIFIC GRAVITY URINE AUTO 1.025 (1.002-1.035); SQUAMOUS EPITHELIAL CELL UR AU 7 /HPF (0-6); WBC, URINE AUTO 5 /HPF (0-3)
== END ==
LOC: M LAB REF 14:09
PROVIDERS: ATTEND Physician Assistant Medical
DX: N39.0 Urinary tract infection, site not specified (principal)

== ENCOUNTER → 2019-06-28 | Outpatient (REF) | payer MEDICARE, MEDICAID ==
[~2019-06-28] MED LIST changes: +FLUO10CA15 PO; -FLUO10CA8 PO; +QUET100T2 PO; -QUET1TAB8 PO
[2019-06-28 20:07] LABS: APPEARANCE, URINE HAZY (CLEAR); BACTERIA, URINE AUTO 1+ (NEGATIVE); BILIRUBIN, URINE AUTO NEGATIVE (NEGATIVE); BLOOD, URINE BLOOD 1+ (NEGATIVE); COLOR, URINE YELLOW (YELLOW); GLUCOSE, URINE (UA) AUTO NEGATIVE (NEGATIVE); KETONE, URINE AUTO NEGATIVE (NEGATIVE); LEUKOCYTE ESTERASE, URINE AUTO NEGATIVE (NEGATIVE); MUCUS, URINE SMALL (NEGATIVE); NITRITE, URINE AUTO NEGATIVE (NEGATIVE); PROTEIN, URINE AUTO NEGATIVE (NEGATIVE); RBC, URINE AUTO 2 /HPF (0-3); SPECIFIC GRAVITY URINE AUTO 1.018 (1.002-1.035); SQUAMOUS EPITHELIAL CELL UR AU 3 /HPF (0-6); WBC, URINE AUTO 1 /HPF (0-3)
== END ==
LOC: M LAB REF 11:50
PROVIDERS: ATTEND Physician Assistant Medical
DX: R30.0 Dysuria (principal)

== ENCOUNTER → 2019-10-29 | Outpatient (REF) | payer MEDICARE, MEDICAID | LOC: M LAB REF 15:18 | PROVIDERS: ATTEND Physician Assistant | DX: N39.0 Urinary tract infection, site not specified (principal) ==

== ENCOUNTER → 2020-01-11 | Outpatient (REF) | payer MEDICARE, MEDICAID ==
[~2020-01-11] MED LIST changes: -FLUO10CA15 PO; +FLUO10CA16 PO
[2020-01-11 22:15] LABS: APPEARANCE, URINE CLOUDY (CLEAR); BACTERIA, URINE AUTO 2+ (NEGATIVE); BILIRUBIN, URINE AUTO NEGATIVE (NEGATIVE); BLOOD, URINE BLOOD NEGATIVE (NEGATIVE); COLOR, URINE YELLOW (YELLOW); GLUCOSE, URINE (UA) AUTO NEGATIVE (NEGATIVE); KETONE, URINE AUTO NEGATIVE (NEGATIVE); LEUKOCYTE ESTERASE, URINE AUTO NEGATIVE (NEGATIVE); MUCUS, URINE SMALL (NEGATIVE); NITRITE, URINE AUTO NEGATIVE (NEGATIVE); PROTEIN, URINE AUTO NEGATIVE (NEGATIVE); RBC, URINE AUTO 2 /HPF (0-3); SPECIFIC GRAVITY URINE AUTO 1.016 (1.002-1.035); SQUAMOUS EPITHELIAL CELL UR AU 13 /HPF (0-6); WBC, URINE AUTO 0 /HPF (0-3)
== END ==
LOC: M LAB REF 22:04
PROVIDERS: ATTEND Physician Assistant Medical
DX: N39.0 Urinary tract infection, site not specified (principal)

== ENCOUNTER → 2020-02-11 | Outpatient (REF) | payer MEDICARE, MEDICAID ==
[2020-02-11 14:32] LABS: AMORPHOUS SEDIMENT SMALL (NEGATIVE); APPEARANCE, URINE TURBID (CLEAR); BACTERIA, URINE AUTO NEGATIVE (NEGATIVE); BILIRUBIN, URINE AUTO NEGATIVE (NEGATIVE); BLOOD, URINE BLOOD NEGATIVE (NEGATIVE); CALCIUM OXALATE CRYSTALS SMALL; COLOR, URINE YELLOW (YELLOW); GLUCOSE, URINE (UA) AUTO NEGATIVE (NEGATIVE); KETONE, URINE AUTO TRACE mg/dL (NEGATIVE); LEUKOCYTE ESTERASE, URINE AUTO TRACE (NEGATIVE); MUCUS, URINE SMALL (NEGATIVE); NITRITE, URINE AUTO NEGATIVE (NEGATIVE); PROTEIN, URINE AUTO 1+ mg/dL (NEGATIVE); RBC, URINE AUTO 0 /HPF (0-3); SPECIFIC GRAVITY URINE AUTO 1.025 (1.002-1.035); SQUAMOUS EPITHELIAL CELL UR AU 16 /HPF (0-6); WBC, URINE AUTO 0 /HPF (0-3)
== END ==
LOC: M LAB REF 12:48
PROVIDERS: ATTEND Family Medicine Addiction Medicine
DX: R30.0 Dysuria (principal)

== ENCOUNTER → 2020-02-20 | Outpatient (CLI) | payer MEDICARE, MEDICAID | LOC: M LABSMTC 10:38 | PROVIDERS: ATTEND Anesthesiology | DX: Z01.812 Encounter for preprocedural laboratory examination (principal); Z20.828 Contact with and (suspected) exposure to other viral communicable diseases | CPT/HCPCS: C9803; U0003 ==

== ENCOUNTER 2020-02-25 07:35 | Day surgery (SDC) | payer MEDICARE, MEDICAID ==
[~2020-02-25] VITALS: Ht 149.9 cm; Wt 82.7 kg
[~2020-02-25 07:35] MED LIST changes: +LIDOCAINE 2% 100MG/5ML SDV (FOR ANES.) As Ordered ONE; +NS 1,000 ML IV ONE; +propofoL 200 MG/20 ML VIAL As Ordered ONE
[2020-02-25] MEDS ORDERED: propofoL 200 MG/20 ML VIAL As Ordered ONE (09:07)
--- NOTE | 2020-02-25 09:16 | ROOR ---
Patient Name: Ida Whitman Procedure Date: 02/25/2020 8:37 AM Date of : 1950 Age: 69 Room: [facility] Gender: Female Note Status: Finalized Procedure: Colonoscopy Indications: High risk colon cancer surveillance: Personal history of colonic polyps Providers: Geoff MEHTA MD Referring MD: Kevin WATKINS MD Requesting Provider: Medicines: Monitored Anesthesia Care Complications: No immediate complications. Procedure: Pre-Anesthesia Assessment: - The heart rate, respiratory rate, oxygen saturations, blood pressure, adequacy of pulmonary ventilation, and response to care were monitored throughout the procedure. The Colonoscope was introduced through the anus and advanced to the cecum, identified by appendiceal orifice and ileocecal valve. The colonoscopy was performed without difficulty. The patient tolerated the procedure well. The quality of the bowel preparation was good. Findings: The perianal and digital rectal examinations were normal. A 30 mm polypoid lesion was found in the distal sigmoid colon in an area of marked diverticular spasm. The lesion was flat. The polyp was removed with a piecemeal technique using a cold snare. Polyp resection was likely incomplete due to difficult access. The resected tissue was retrieved. Four sessile polyps were found in the sigmoid colon, splenic flexure and hepatic flexure. The polyps were diminutive in size. These polyps were removed with a cold snare. Resection and retrieval were complete. Multiple small and large-mouthed diverticula were found in the sigmoid colon. There was evidence of diverticular spasm. Impression: - Benign flat polypoid fold or variant mucosa in the distal sigmoid colon (at 20 cm from verge). Tissue was partially removed. - Four diminutive polyps in the sigmoid colon, at the splenic flexure and at the hepatic flexure, removed with a cold snare. Resected and retrieved. - Diverticulosis in the sigmoid colon. There was evidence of diverticular spasm. Recommendation: - Telephone endoscopist for pathology results in 2 weeks. - Repeat colonoscopy for surveillance based on pathology results. Geoff Mehta MD Geoff MEHTA MD 02/25/2020 9:16:14 AM Electronically signed by Geoff MEHTA MD Number of Addenda: 0 Note Initiated On: 02/25/2020 8:37 AM Estimated Blood Loss: Estimated blood loss: none.
[2020-02-25 09:35] VITALS: BP 139/77
== END 2020-02-25 09:46 | disposition home or self-care (01) ==
LOC: M OPP 07:35
PROVIDERS: ATTEND Internal Medicine Gastroenterology
DX: Z12.11 Encounter for screening for malignant neoplasm of colon (principal); Z86.010 Personal history of colon polyps; K63.5 Polyp of colon; K57.30 Diverticulosis of large intestine without perforation or abscess without bleeding; F17.210 Nicotine dependence, cigarettes, uncomplicated; E78.5 Hyperlipidemia, unspecified; F41.9 Anxiety disorder, unspecified; F32.9 Major depressive disorder, single episode, unspecified; J44.9 Chronic obstructive pulmonary disease, unspecified; G47.00 Insomnia, unspecified; Z82.49 Family history of ischemic heart disease and other diseases of the circulatory system; Z80.8 Family history of malignant neoplasm of other organs or systems

== ENCOUNTER 2020-03-31 22:20 | Emergency (ER) | payer MEDICARE, MEDICAID ==
[~2020-03-31] VITALS: Ht 149.9 cm; Wt 83.5 kg
[~2020-03-31 22:20] MED LIST changes: -LIDOCAINE 2% 100MG/5ML SDV (FOR ANES.) As Ordered ONE; -NS 1,000 ML IV ONE; -propofoL 200 MG/20 ML VIAL As Ordered ONE
[2020-04-01] MEDS ORDERED: ONDANSETRON 4MG/2ML VIAL IV ONE (02:00)
[2020-04-01] MEDS ORDERED: NS 1,000 ML IV ONE (02:00)
[2020-04-01] MEDS ORDERED: KETOROLAC 30 MG/ML 1ML VIAL IV ONE (02:00)
[2020-04-01 02:10] LABS: BASO % 0.3 % (0.0-1.0); EOS # 0.2 10^3/uL (0.0-0.5); HEMATOCRIT 40.8 % (36.0-47.0); HEMOGLOBIN 12.8 g/dl (12.0-15.5); LYMPH # 0.8 10^3/uL (1.5-5.0); LYMPH % 8.9 % (24.0-44.0); MEAN CORPUSCULAR HEMOGLOBIN 24.5 pg (27.0-33.0); MEAN CORPUSCULAR HGB CONC 31.4 g/dl (32.0-36.5); MEAN CORPUSCULAR VOLUME 78.2 fl (80.0-96.0); MONO # 0.4 10^3/uL (0.0-0.8); MONO % 4.9 % (0.0-5.0); NEUTROPHILS # 7.5 10^3/uL (1.5-8.5); NEUTROPHILS % 83.7 % (36.0-66.0); PLATELET COUNT, AUTOMATED 154 10^3/uL (150-450); RED BLOOD COUNT 5.22 10^6/uL (4.00-5.40)
[2020-04-01 02:35] LABS: ALBUMIN 3.8 GM/DL (3.2-5.2); BILIRUBIN,DIRECT 0.2 MG/DL (0.0-0.2); BILIRUBIN,TOTAL 0.8 MG/DL (0.2-1.0); CALCIUM LEVEL 8.8 MG/DL (8.8-10.2); CREATININE FOR GFR 1.09 MG/DL (0.55-1.30); GLOMERULAR FILTRATION RATE 53.1 (>45); POTASSIUM SERUM 3.9 MEQ/L (3.5-5.1); TOTAL PROTEIN 7.4 GM/DL (6.4-8.2)
[2020-04-01] MEDS ORDERED: ISOVUE-370 76% 100ML VIAL As Ordered ONE (03:27)
--- NOTE | 2020-04-01 04:23 | REPVR ---
PROCEDURE INFORMATION: Exam: CT Head Without Contrast Exam date and time: 04/01/2020 3:20 AM Age: 70 years old Clinical indication: Altered mental status/memory loss; Confusion or disorientation; Additional info: Confusion, abd pain TECHNIQUE: Imaging protocol: Computed tomography of the head without contrast. Radiation optimization: All CT scans at this facility use at least one of these dose optimization techniques: automated exposure control; mA and/or kV adjustment per patient size (includes targeted exams where dose is matched to clinical indication); or iterative reconstruction. COMPARISON: CT Head without contrast 05/23/2016 5:55 PM FINDINGS: Brain: There is no acute intracranial abnormality. Mild small vessel ischemic changes are seen. There is no mass, midline shift, or mass effect. Angel-white matter differentiation is preserved. There is no evidence of hemorrhage. There is no extra-axial fluid collection. Basal cisterns are patent. Cerebral ventricles: Mild prominence of ventricles and sulci representing volume loss. Bones/joints: The visualized osseous structures are unremarkable. Paranasal sinuses: Visualized sinuses are clear. Mastoid air cells: Mastoid air cells are clear. Soft tissues: Unremarkable. IMPRESSION: 1. Mild volume loss and small vessel ischemic changes. . 2. No acute intracranial abnormality. Electronically signed by: Ofelia Suresh On 04/01/2020 04:22:55 AM
--- NOTE | 2020-04-01 04:31 | REPVR ---
PROCEDURE INFORMATION: Exam: CT Abdomen And Pelvis With Contrast Exam date and time: 04/01/2020 3:20 AM Age: 70 years old Clinical indication: Abdominal pain; Generalized; Additional info: Confusion, abd pain TECHNIQUE: Imaging protocol: Computed tomography of the abdomen and pelvis with intravenous contrast. Radiation optimization: All CT scans at this facility use at least one of these dose optimization techniques: automated exposure control; mA and/or kV adjustment per patient size (includes targeted exams where dose is matched to clinical indication); or iterative reconstruction. Contrast material: ISO; Contrast volume: 100 ml; Contrast route: INTRAVENOUS (IV); COMPARISON: No relevant prior studies available. FINDINGS: Lungs: Mild bibasilar atelectasis in the visualized lungs. Liver: Enlarged liver with diffuse fatty infiltration. Gallbladder and bile ducts: Gallstones. No ductal dilatation. Pancreas: Normal. No ductal dilation. Spleen: Normal. No splenomegaly. Adrenal glands: Normal. No mass. Kidneys and ureters: Normal. No hydronephrosis. Stomach and bowel: Few scattered colonic diverticula without any CT evidence of diverticulitis. Mild fecal loading in the colon. No bowel dilatation or obstruction. Appendix: Appendix is not seen. No secondary signs to suggest acute appendicitis. Intraperitoneal space: Unremarkable. No free air. No significant fluid collection. Vasculature: Aortic aneurysm measuring 3.1 x 2.9 cm with moderate atherosclerosis and soft plaque. No evidence dissection or retroperitoneal hematoma formation. Lymph nodes: Unremarkable. No enlarged lymph nodes. Urinary bladder: Unremarkable as visualized. Reproductive: Unremarkable as visualized. Bones/joints: Mild levoscoliosis of the lumbar spine. No letha acute fracture. Mild degenerative changes. Soft tissues: Unremarkable. IMPRESSION: Enlarged fatty liver. Gallstones. No ductal dilatation. Aortic aneurysm measuring 3.1 x 2.9 cm with moderate atherosclerosis and soft plaque. No evidence dissection or retroperitoneal hematoma formation. Electronically signed by: Ofelia Suresh On 04/01/2020 04:30:58 AM
[2020-04-01 05:45] VITALS: BP 136/74
--- NOTE | 2020-04-02 16:59 | ED PDOC ---
Post-Departure Follow-Up dr rylee pastor faxed formal report of ct abd/p for fu Drew House MD Apr 02, 2020 16:59
== END 2020-04-01 06:17 | disposition home or self-care (01) ==
LOC: M ED 22:20
DX: I71.4 Abdominal aortic aneurysm, without rupture (principal); F17.210 Nicotine dependence, cigarettes, uncomplicated
CPT/HCPCS: 70450; 74177; 80048; 80076; 81001; 83690; 85025; 96374; 96375; 99284; J1885; J2405; Q9967; U0002

== ENCOUNTER 2020-05-19 00:35 | Emergency (ER) | payer MEDICARE, MEDICAID ==
[~2020-05-19] VITALS: Ht 149.9 cm; Wt 81.8 kg
[2020-05-19] MEDS ORDERED: SERT25TA21 (00:41)
--- NOTE | 2020-05-19 01:31 | REPVR ---
PROCEDURE INFORMATION: Exam: XR Right Tibia and Fibula Exam date and time: 05/19/2020 12:42 AM Age: 70 years old Clinical indication: Other: Injury TECHNIQUE: Imaging protocol: XR Right tibia and fibula. Views: 2 views. COMPARISON: No relevant prior studies available. FINDINGS: Bones/joints: Bony structures are aligned normally and demonstrate normal trabecular detail. No fracture or stress fracture. No concerning osseous lesion. Soft tissues: No focal soft tissue swelling or effacement of subcutaneous soft tissue planes. IMPRESSION: Unremarkable radiographic series of the leg. Electronically signed by: Gui Grace On 05/19/2020 01:31:19 AM
[2020-05-19] MEDS ORDERED: KETOROLAC 30 MG/ML 1ML VIAL IM ONE (05:15)
--- NOTE | 2020-05-19 05:48 | REPVR ---
PROCEDURE INFORMATION: Exam: XR Right Knee Exam date and time: 05/19/2020 5:01 AM Age: 70 years old Clinical indication: Other: Fall TECHNIQUE: Imaging protocol: XR Right knee. Views: 4 or more views. COMPARISON: CR Tibia, Fibula lower leg RIGHT 05/19/2020 12:47 AM FINDINGS: Bones/joints: Normal. Soft tissues: Normal. Vasculature: Atherosclerotic disease. IMPRESSION: No acute fractures. Electronically signed by: Akash Phillip On 05/19/2020 05:48:57 AM
[2020-05-19 06:30] VITALS: BP 132/66
== END 2020-05-19 06:32 | disposition home or self-care (01) ==
LOC: M ED 00:35
DX: S80.01XA Contusion of right knee, initial encounter (principal); W01.0XXA Fall on same level from slipping, tripping and stumbling without subsequent striking against object, initial encounter; Y92.018 Other place in single-family (private) house as the place of occurrence of the external cause; F17.210 Nicotine dependence, cigarettes, uncomplicated
CPT/HCPCS: 73564; 73590; 96372; 99283; J1885

== ENCOUNTER → 2020-07-09 | Outpatient (CLI) | payer MEDICARE, MEDICAID ==
[~2020-07-09] MED LIST changes: +SERT25TA21
--- NOTE | 2020-07-09 17:28 | REP ---
INDICATION: Dyspnea COMPARISON: None. TECHNIQUE: PA/Lateral FINDINGS: Lungs: Clear, no infiltrate. There is minor basilar fibro atelectatic change. Heart: Normal in size. Mediastinum: There is mild calcification of the thoracic aorta. The mediastinal silhouette is otherwise unremarkable. Pleural angles: Unremarkable.. Bones and soft tissues: There are degenerative changes of the spine without compression deformity. IMPRESSION: No acute pulmonary disease. <Electronically signed by Vince Angel > 07/09/20 [id number]
== END ==
LOC: M RAD 10:45
PROVIDERS: ATTEND Internal Medicine Pulmonary Disease
DX: R06.00 Dyspnea, unspecified (principal)

== ENCOUNTER → 2020-09-06 | Outpatient (REF) | payer MEDICARE, MEDICAID ==
[2020-09-06 13:14] LABS: ALBUMIN 3.8 GM/DL (3.2-5.2); ALT/SGPT 25 U/L (12-78); BILIRUBIN,TOTAL 0.4 MG/DL (0.2-1.0); BLOOD UREA NITROGEN 13 MG/DL (7-18); CALCIUM LEVEL 9.1 MG/DL (8.8-10.2); CARBON DIOXIDE LEVEL 28 MEQ/L (21-32); CHLORIDE LEVEL 104 MEQ/L (98-107); CHOLESTEROL LEVEL 275 MG/DL (<200); CHOLESTEROL RISK RATIO 5.288 (<5); CREATININE FOR GFR 0.63 MG/DL (0.55-1.30); GLOMERULAR FILTRATION RATE > 60.0 (>45); GLUCOSE, FASTING 118 MG/DL (70-100); HDL CHOLESTEROL 52 MG/DL (>40); LDL CHOLESTEROL 190 MG/DL (<100); NON-HDL-C 223 MG/DL; POTASSIUM SERUM 4.8 MEQ/L (3.5-5.1); SODIUM LEVEL 139 MEQ/L (136-145); TOTAL PROTEIN 7.5 GM/DL (6.4-8.2); TRIGLYCERIDES LEVEL 163 MG/DL (<150)
== END ==
LOC: M LAB REF 12:13
PROVIDERS: ATTEND Family Medicine Addiction Medicine
DX: E78.5 Hyperlipidemia, unspecified (principal)

== ENCOUNTER → 2020-09-12 | Outpatient (CLI) | payer MEDICARE, MEDICAID ==
--- NOTE | 2020-09-12 16:57 | REP ---
INDICATION: COPD COMPARISON: None. TECHNIQUE: Standard helical technique without the administration of intravenous contrast FINDINGS: The mediastinum and pulmonary lex are within normal limits. There is no evidence of a mass or adenopathy. There are no pleural or pericardial effusions. The imaged upper abdomen shows cholelithiasis in a partially imaged infrarenal abdominal aortic aneurysm which measures 3.4 cm in its greatest AP dimension. The imaged osseous structures are within normal limits for the patient's age. Evaluation of the lung dunn shows no abnormal nodules, masses, or opacities. Minimal subsegmental atelectatic changes are seen in the lower lung dunn. There is mild cylindrical bronchiectasis. IMPRESSION: Mild chronic lung field changes as described above. <Electronically signed by Rodolfo Aguilar > 09/12/20 [id number]
== END ==
LOC: M RAD 14:17
PROVIDERS: ATTEND Internal Medicine Pulmonary Disease
DX: J44.9 Chronic obstructive pulmonary disease, unspecified (principal)

== ENCOUNTER → 2021-11-09 | Outpatient (REF) | payer MEDICARE, MEDICAID ==
[~2021-11-09] MED LIST changes: -FLUO10CA16 PO; +FLUO10CA18 PO
== END ==
LOC: M LAB REF 22:30
PROVIDERS: ATTEND Physician Assistant
DX: N39.0 Urinary tract infection, site not specified (principal)

== ENCOUNTER → 2021-11-17 | Outpatient (REF) | payer MEDICARE, MEDICAID | LOC: M LAB REF 21:13 | PROVIDERS: ATTEND Physician Assistant | DX: N39.0 Urinary tract infection, site not specified (principal) ==

== ENCOUNTER 2021-12-01 14:32 | Emergency (ER) | payer MEDICARE, MEDICAID ==
[~2021-12-01] VITALS: Ht 154.9 cm; Wt 85.7 kg
[2021-12-01 15:32] LABS: VENOUS BASE EXCESS -0.2 (-2.0-2.0); VENOUS HCO3 24.5 MEQ/L (23.0-27.0); VENOUS O2 SATURATION 97.3 % (60.0-80.0); VENOUS PARTIAL PRESSURE CO2 40.1 mmHg (38.0-50.0); VENOUS PARTIAL PRESSURE O2 92.1 mmHg (30.0-50.0); VENOUS PH 7.403 UNITS (7.330-7.430); VENOUS STANDARD HCO3 24.3 MEQ/L; VENOUS TOTAL CO2 25.7 MEQ/L (24.0-28.0)
[2021-12-01 15:40] LABS: BASO # 0.1 10^3/uL (0.0-0.2); BASO % 0.9 % (0.0-1.0); EOS # 0.3 10^3/uL (0.0-0.5); EOS % 2.9 % (0.0-3.0); HEMATOCRIT 39.2 % (36.0-47.0); HEMOGLOBIN 12.7 g/dl (12.0-15.5); LYMPH % 29.8 % (24.0-44.0); MEAN CORPUSCULAR HEMOGLOBIN 24.7 pg (27.0-33.0); MEAN CORPUSCULAR HGB CONC 32.4 g/dl (32.0-36.5); MEAN CORPUSCULAR VOLUME 76.1 fl (80.0-96.0); MONO # 0.5 10^3/uL (0.0-0.8); MONO % 4.5 % (2.0-8.0); NEUTROPHILS # 6.3 10^3/uL (1.5-8.5); NEUTROPHILS % 61.7 % (36.0-66.0); PLATELET COUNT, AUTOMATED 192 10^3/uL (150-450); RED BLOOD COUNT 5.15 10^6/uL (4.00-5.40); WHITE BLOOD COUNT 10.1 10^3/uL (4.0-10.0)
[2021-12-01 15:56] LABS: OSMOLALITY SERUM 293 MOSM/KG (280-301)
[2021-12-01 15:59] LABS: HEMOGLOBIN A1c 10.2 %
[2021-12-01 16:10] LABS: ACETONE/KETONE 0.63 MG/DL (<2.81); ALBUMIN 3.5 GM/DL (3.2-5.2); ALT/SGPT 29 U/L (12-78); BILIRUBIN,DIRECT 0.2 MG/DL (0.0-0.2); BILIRUBIN,TOTAL 0.7 MG/DL (0.2-1.0); BLOOD UREA NITROGEN 11 MG/DL (7-18); CALCIUM LEVEL 9.1 MG/DL (8.8-10.2); CARBON DIOXIDE LEVEL 27 MEQ/L (21-32); CHLORIDE LEVEL 100 MEQ/L (98-107); CREATININE FOR GFR 0.94 MG/DL (0.55-1.30); GLOMERULAR FILTRATION RATE > 60.0 (>45); GLUCOSE, FASTING 397 MG/DL (70-100); LIPASE 237 U/L (73-393); POTASSIUM SERUM 4.2 MEQ/L (3.5-5.1); SODIUM LEVEL 134 MEQ/L (136-145)
[2021-12-01] MEDS ORDERED: NS 1,000 ML IV ONE (18:50)
[2021-12-01] MEDS ORDERED: HumuLIN R (REGULAR) INSULIN (NovoLIN R) **100U/ML** PER UNIT IV ONE (18:50)
[2021-12-01] MEDS ORDERED: METF500T13 PO (20:02)
[2021-12-01 20:15] VITALS: BP 146/92
== END 2021-12-01 20:16 | disposition home or self-care (01) ==
LOC: M ED 14:32
DX: E11.65 Type 2 diabetes mellitus with hyperglycemia (principal); Z79.899 Other long term (current) drug therapy; F17.200 Nicotine dependence, unspecified, uncomplicated
CPT/HCPCS: 80048; 80076; 81001; 82010; 82803; 83036; 83690; 83930; 85025; 93005; 96361; 96374; 99284; J1815

== ENCOUNTER → 2022-07-02 | Outpatient (REF) | payer MEDICARE, MEDICAID ==
[~2022-07-02] MED LIST changes: +METF500T13 PO
[2022-07-02 13:01] LABS: BASO # 0.1 10^3/uL (0.0-0.2); BASO % 0.8 % (0.0-1.0); EOS # 0.8 10^3/uL (0.0-0.5); EOS % 7.2 % (0.0-3.0); HEMATOCRIT 39.3 % (36.0-47.0); HEMOGLOBIN 12.1 g/dl (12.0-15.5); LYMPH # 3.2 10^3/uL (1.5-5.0); LYMPH % 30.7 % (24.0-44.0); MEAN CORPUSCULAR HEMOGLOBIN 24.3 pg (27.0-33.0); MEAN CORPUSCULAR HGB CONC 30.8 g/dl (32.0-36.5); MEAN CORPUSCULAR VOLUME 78.9 fl (80.0-96.0); MONO # 0.6 10^3/uL (0.0-0.8); MONO % 5.4 % (2.0-8.0); NEUTROPHILS # 5.8 10^3/uL (1.5-8.5); NEUTROPHILS % 55.5 % (36.0-66.0); PLATELET COUNT, AUTOMATED 174 10^3/uL (150-450); RED BLOOD COUNT 4.98 10^6/uL (4.00-5.40); WHITE BLOOD COUNT 10.4 10^3/uL (4.0-10.0)
[2022-07-02 13:29] LABS: THYROID STIMULATING HORMONE 2.006 uIU/ML (0.55-4.78)
[2022-07-02 13:30] LABS: ALBUMIN 3.8 G/DL (3.2-5.2); ALKALINE PHOSPHATASE 78 U/L (46-116); ALT/SGPT 13 U/L (7.0-40); AST/SGOT 18 U/L (<34); BILIRUBIN,TOTAL 0.5 MG/DL (0.3-1.2); BLOOD UREA NITROGEN 13 MG/DL (9-23); CALCIUM LEVEL 8.7 MG/DL (8.3-10.6); CARBON DIOXIDE LEVEL 26 MMOL/L (20-31); CHLORIDE LEVEL 105 MMOL/L (98-107); CHOLESTEROL LEVEL 215 MG/DL (<200); CHOLESTEROL RISK RATIO 3.57 (<5); CREATININE FOR GFR 0.76 MG/DL (0.55-1.30); GLOMERULAR FILTRATION RATE > 60.0 (>39); GLUCOSE, FASTING 134 MG/DL (74-106); HDL CHOLESTEROL 60.2 MG/DL (>40); LDL CHOLESTEROL 129.4 MG/DL (<100); NON-HDL-C 155 MG/DL; POTASSIUM SERUM 4.1 MMOL/L (3.5-5.1); SODIUM LEVEL 139 MMOL/L (136-145); TOTAL 25(OH) VITAMIN D 14.4 NG/ML (20.0-100.0); TOTAL PROTEIN 6.9 G/DL (5.7-8.2); TRIGLYCERIDES LEVEL 127 MG/DL (<150)
[2022-07-02 13:32] LABS: CREATININE, URINE 34.2 MG/DL
== END ==
LOC: M LAB REF 11:56
PROVIDERS: ATTEND Nurse Practitioner Family
DX: E11.9 Type 2 diabetes mellitus without complications (principal); E78.5 Hyperlipidemia, unspecified; E66.9 Obesity, unspecified; I10 Essential (primary) hypertension

== ENCOUNTER → 2022-08-15 | Outpatient (CLI) | payer MEDICARE, MEDICAID ==
[2022-08-15 12:13] LABS: THYROID STIMULATING HORMONE 1.841 uIU/ML (0.55-4.78)
[2022-08-15 12:14] LABS: FOLATE 13.1 NG/ML (>5.4)
[2022-08-20 21:09] LABS: VITAMIN B6,PYRIDOXAL PHOSPHATE 3.1 ug/L (3.4-65.2); VITAMIN E(ALPHA TOCOPHEROL) 10.6 mg/L (9.0-29.0); VITAMIN E(GAMMA TOCOPHEROL) 2.8 mg/L (0.5-4.9)
== END ==
LOC: M LAB 10:17
PROVIDERS: ATTEND Psychiatry & Neurology Neurology
DX: R41.3 Other amnesia (principal); E53.8 Deficiency of other specified B group vitamins; E51.9 Thiamine deficiency, unspecified; E53.1 Pyridoxine deficiency; E56.0 Deficiency of vitamin E; E03.9 Hypothyroidism, unspecified

== ENCOUNTER → 2022-09-13 | Outpatient (CLI) | payer MEDICARE, MEDICAID | LOC: M RAD 13:11 | PROVIDERS: ATTEND Internal Medicine Pulmonary Disease | DX: Z12.2 Encounter for screening for malignant neoplasm of respiratory organs (principal); F17.218 Nicotine dependence, cigarettes, with other nicotine-induced disorders; J47.9 Bronchiectasis, uncomplicated ==

== ENCOUNTER → 2022-11-21 | Outpatient (CLI) | payer MEDICARE, MEDICAID | LOC: M WHC 12:51 | PROVIDERS: ATTEND Nurse Practitioner Family | DX: Z12.31 Encounter for screening mammogram for malignant neoplasm of breast (principal); Z13.820 Encounter for screening for osteoporosis; M85.851 Other specified disorders of bone density and structure, right thigh ==

== ENCOUNTER → 2023-01-18 | Outpatient (REF) | payer MEDICARE, MEDICAID ==
[2023-01-18 17:07] LABS: CREATININE, URINE 143.6 MG/DL
[2023-01-18 17:30] LABS: MAU/CREAT RATIO 373.9 MCG/MG (0.0-30.0)
== END ==
LOC: M LAB REF 16:05
PROVIDERS: ATTEND Nurse Practitioner Family
DX: R80.9 Proteinuria, unspecified (principal)

== ENCOUNTER → 2023-06-03 | Outpatient (REF) | payer MEDICARE, MEDICAID ==
[2023-06-03 17:38] LABS: BASO # 0.1 10^3/uL (0.0-0.2); BASO % 0.8 % (0.0-1.0); EOS # 0.6 10^3/uL (0.0-0.5); EOS % 5.6 % (0.0-3.0); HEMATOCRIT 32.8 % (36.0-47.0); HEMOGLOBIN 10.5 g/dl (12.0-15.5); LYMPH % 29.5 % (24.0-44.0); MEAN CORPUSCULAR HEMOGLOBIN 25.4 pg (27.0-33.0); MEAN CORPUSCULAR VOLUME 79.2 fl (80.0-96.0); MONO # 0.7 10^3/uL (0.0-0.8); MONO % 7.1 % (2.0-8.0); NEUTROPHILS # 5.8 10^3/uL (1.5-8.5); NEUTROPHILS % 56.7 % (36.0-66.0); PLATELET COUNT, AUTOMATED 207 10^3/uL (150-450); RED BLOOD COUNT 4.14 10^6/uL (4.00-5.40); WHITE BLOOD COUNT 10.3 10^3/uL (4.0-10.0)
[2023-06-03 17:45] LABS: CALCIUM LEVEL 9.7 MG/DL (8.3-10.6); CREATININE FOR GFR 1.22 MG/DL (0.55-1.30); GLOMERULAR FILTRATION RATE 46.3 (>39); POTASSIUM SERUM 3.8 MMOL/L (3.5-5.1)
[2023-06-03 17:46] LABS: FERRITIN 125.6 NG/ML (7.3-270.7); PERCENT SATURATION 19.7 % (13.2-45.0)
== END ==
LOC: M LAB REF 16:35
PROVIDERS: ATTEND Nurse Practitioner Family
DX: E11.9 Type 2 diabetes mellitus without complications (principal); J44.9 Chronic obstructive pulmonary disease, unspecified

== ENCOUNTER → 2023-06-03 | Outpatient (REF) | payer MEDICARE, MEDICAID ==
[2023-06-04 14:32] LABS: CREATININE, URINE 177.6 MG/DL
[2023-06-04 14:49] LABS: MAU/CREAT RATIO 371.6 MCG/MG (0.0-30.0)
== END ==
LOC: M LAB REF 12:16
PROVIDERS: ATTEND Nurse Practitioner Family
DX: R80.9 Proteinuria, unspecified (principal)

== ENCOUNTER → 2023-06-12 | Outpatient (REF) | payer MEDICARE, MEDICAID ==
[2023-06-12 17:52] LABS: PERCENT SATURATION 19.6 % (13.2-45.0)
[2023-06-12 17:54] LABS: FERRITIN 105.4 NG/ML (7.3-270.7)
[2023-06-12 18:03] LABS: TOTAL PROTEIN,RANDOM URINE 214.2 MG/DL (0.0-14.0)
== END ==
LOC: M LAB REF 17:06
PROVIDERS: ATTEND Internal Medicine Nephrology
DX: R80.9 Proteinuria, unspecified (principal); E61.1 Iron deficiency; N17.9 Acute kidney failure, unspecified

== ENCOUNTER → 2023-06-24 | Outpatient (CLI) | payer MEDICARE, MEDICAID | LOC: M RAD 09:55 | PROVIDERS: ATTEND Nurse Practitioner Family | DX: I71.43 Infrarenal abdominal aortic aneurysm, without rupture (principal) ==

== ENCOUNTER → 2023-09-27 | Outpatient (CLI) | payer MEDICARE, MEDICAID ==
[~2023-09-27] MED LIST changes: +ALBU8.5H; +ERGO500029 PO; +FLUO-290 PO; -FLUO10CA18 PO; +FLUT1BLS8 INH; +LISI10TA22 PO; +MEMA10TA PO; +METF-838 PO; +ROSU40TA63 PO; +TRAZ-252 PO; +ZOLO100T PO
== END ==
LOC: M RAD 10:31
PROVIDERS: ATTEND Internal Medicine Nephrology
DX: N17.9 Acute kidney failure, unspecified (principal); I10 Essential (primary) hypertension